=== PATIENT | male | born 1965 | race Caucasian/White ===

== ENCOUNTER 2025-05-04 12:51 | Inpatient (IN) ==
--- NOTE | 2025-05-04 13:44 | Emergency Department Note ---
History of Present Illness General Chief complaint: Shortness of Breath/Dyspnea Stated complaint: SOB Time Seen by Provider: 05/04/25 13:23 History of Present Illness This is a 60-year-old male that presents to the emergency department via EMS with complaints of "dyspnea". The patient notes history of PE x 3, currently anticoagulated on warfarin. Patient also notes recent diagnosis of black lung. Patient has history of thoracic aortic ectasia, hypertension, PE, black lung, among others. The patient notes last chest CT was fall of last year. Patient also notes on oxycodone 10 mg 4 times daily for pain. Patient notes that the shortness of breath has been essentially present since June of this past year, worsened in this past January and acutely worsened this morning. He is now requiring oxygen. Per review of EMS patient was 88% on room air when they arrived, placed on 6 L nasal cannula. They tried DuoNeb but not tolerable for the patient. EMS report patient also potentially in A-fib with PVC/PAC on the monitor. Patient now on 2 L nasal cannula. Patient denies any fevers, chills, nausea or vomiting. No chest pain. He does feel short of breath. No speech trouble or weakness. No recent or current illness. No fevers. The patient's spouse at bedside does have extensive records of the patient which were very helpful. The patient has [facility] in [place]. Patient also presents with [facility] visit summary dated 03/22/2025. At that time visit was for follow-up on palpitations. Home Medications Medication Instructions Recorded Confirmed Type acetaminophen 500 mg tablet 1,000 mg PO DAILY PRN Pain 05/04/25 05/04/25 History allopurinol 100 mg tablet 100 mg PO BID 05/04/25 05/04/25 History baclofen 10 mg tablet 10 mg PO TID 05/04/25 05/04/25 History carisoprodol 350 mg tablet 350 mg PO TID 05/04/25 05/04/25 History celecoxib 200 mg capsule 200 mg PO BID 05/04/25 05/04/25 History cholecalciferol (vitamin D3) 50 50 mcg PO DAILY 05/04/25 05/04/25 History mcg (2,000 unit) capsule (Vitamin D3) diclofenac sodium 1 % topical gel 2 g topical DAILY PRN Pain 05/04/25 05/04/25 History fexofenadine 180 mg tablet 180 mg PO DAILY 05/04/25 05/04/25 History furosemide 40 mg tablet 40 mg PO DAILY PRN Fluid Retention 05/04/25 05/04/25 History gabapentin 300 mg capsule 300 mg PO TID 05/04/25 05/04/25 History lisinopril 10 mg tablet 10 mg PO QAM 05/04/25 05/04/25 History metoprolol succinate 50 mg 50 mg PO QAM 05/04/25 05/04/25 History tablet,extended release 24 hr oxycodone 10 mg tablet 10 mg PO QID 05/04/25 05/04/25 History polyethylene glycol 3350 17 17 g PO DAILY PRN Constipation 05/04/25 05/04/25 History gram/dose oral powder (Miralax) warfarin 2.5 mg tablet 2.5 mg PO .FRIDAY AND Friday05/04/25 05/04/25 History warfarin 5 mg tablet 5 mg PO .FRANK,,FRI,S,SAT 05/04/25 05/04/25 History Allergies Allergy/AdvReac Type Severity Reaction Status Date / Time codeine AdvReac Unknown Unknown Verified 05/04/25 21:10 Past Med/Surg History Problem List (Updated 05/05/25 @ 00:24 by Alonzo Nam PA-C) Dyspnea (Acute) History of pulmonary embolism (Acute) Muscle spasm Tremors of nervous system BMI 50.0-59.9, adult Pneumoconiosis Hypoxia (Acute) Social History Smoking Status: Never smoker Hx Alcohol Use: No Hx Substance Use: No Preferred Language: [place] Current Living Situation: Spouse Feels Safe at Home: Yes Review of Systems A total of 10 systems reviewed and were otherwise negative Physical Exam Vital Signs Vital Signs - 24 hr 05/04/25 13:07 05/04/25 13:07 05/04/25 13:07 Temperature 37.2 C Temperature Source Oral Pulse Rate 85 Pulse Rate [Apical] 85 Respiratory Rate 17 17 Respiratory Depth Blood Pressure 144/108 H Blood Pressure [Right Radial Artery] 144/108 H Blood Pressure Mean 120 Blood Pressure Mean [Right Radial Artery] 120 Pulse Oximetry 95 95 95 Oxygen Delivery Method Room Air Room Air Room Air Oxygen Flow Rate Sepsis Recent Fever Within 48 Hours No Sepsis New/Unexplained Change in Mental Status N/A Sepsis Action Taken by Nursing No Action Required 05/04/25 13:13 05/04/25 13:53 05/04/25 15:25 Temperature Temperature Source Pulse Rate 84 83 Pulse Rate [Apical] 85 Respiratory Rate 18 Respiratory Depth Normal Blood Pressure Blood Pressure [Right Radial Artery] 106/57 L Blood Pressure Mean Blood Pressure Mean [Right Radial Artery] 73 Pulse Oximetry 94 100 Oxygen Delivery Method Nebulizer Oxygen Flow Rate 7 Sepsis Recent Fever Within 48 Hours Sepsis New/Unexplained Change in Mental Status Sepsis Action Taken by Nursing 05/04/25 17:00 05/04/25 17:15 05/04/25 17:41 Temperature Temperature Source Pulse Rate 87 Pulse Rate [Apical] 72 Respiratory Rate 16 Respiratory Depth Blood Pressure Blood Pressure [Right Radial Artery] 94/77 L 133/82 Blood Pressure Mean Blood Pressure Mean [Right Radial Artery] 82 99 Pulse Oximetry 95 Oxygen Delivery Method Nasal Cannula Oxygen Flow Rate 6 Sepsis Recent Fever Within 48 Hours Sepsis New/Unexplained Change in Mental Status Sepsis Action Taken by Nursing VITAL SIGNS - Vital signs and nursing notes were reviewed. Requiring oxygen, otherwise stable and afebrile. GENERAL -60-year-old male appearing his stated age who is in no acute distress. Currently on nasal cannula oxygen. Communicates well with provider and answers questions appropriately. SKIN - Without rashes. No meningeal or petechial rash. HEAD - NC/AT. EYES - PERRL with EOMI bilaterally. Sclera anicteric. EARS - No deformities of external structures noted on gross examination bilaterally. NOSE - Midline and without cyanosis. No epistaxis or purulent drainage noted. MOUTH/OROPHARYNX - Without perioral cyanosis. Buccal mucosa pink and moist and without leukoplakia. Tongue midline with equal elevation of palate bilaterally. No tonsillar hypertrophy, erythema, or exudates noted. Fair dentition noted. No drooling, stridor, trismus, wheezing or tripoding. Normal phonation. Patient speaking in full sentences NECK - Neck with FROM. No nuchal rigidity. LUNGS - Chest wall symmetric without accessory muscle use, intercostals retractions, or central cyanosis. Mild bilateral wheezing noted. CARDIAC - RRR ABDOMEN - Abdominal contour normal without pulsations or visible masses. BS normoactive all four quadrants. No tenderness, palpable masses, hepatosplenomegaly, or ascites noted. EXTREMITIES - +5/5 strength noted in UE/LE bilaterally. NEUROLOGIC - Cranial nerves II through XII grossly intact. PSYCH -alert, oriented and pleasant on examination. Course Administered Medications Allopurinol (Allopurinol 100 Mg Tab) 100 mg PO BID [facility] Stop: 06/03/25 20:59 Last Admin: 05/04/25 21:53 Dose: 100 mg Documented By: TONY Azelastine HCl (Azelastine Hcl 0.1% Nasal 200 Sprays/27,400 Mcg Btl) 2 sprays NA BID [facility] Stop: 06/03/25 21:29 Last Admin: 05/04/25 21:53 Dose: 2 sprays Documented By: TONY Baclofen (Baclofen 10 Mg Tab) 10 mg PO TID [facility] Stop: 06/03/25 20:59 Last Admin: 05/04/25 21:53 Dose: 10 mg Documented By: TONY Gabapentin (Gabapentin 250 Mg/5 Ml 470 Ml Btl) 150 mg PO TID [facility] Stop: 06/03/25 20:59 Last Admin: 05/04/25 21:52 Dose: 150 mg Documented By: TONY Oxycodone HCl (Oxycodone Hcl Ir 5 Mg Tab (Immediate Release)) 10 mg PO TID [facility] Stop: 05/18/25 20:59 Last Admin: 05/04/25 21:52 Dose: 10 mg Documented By: TONY Discontinued Medications Albuterol (Albut/Ipratrop 3mg/0.5mg Neb 3 Ml Vial) 3 ml NEB NOW STA; Protocol Stop: 05/04/25 15:20 Last Admin: 05/04/25 15:23 Dose: 3 ml Documented By: STUART Sodium Chloride (Nss) 500 mls @ 125 mls/hr IV .Q4H ONE Stop: 05/04/25 19:29 Last Infusion: 05/04/25 21:59 Dose: Infused Documented By: Admin: 05/04/25 17:56 Dose: 125 mls/hr Documented By: STUART Oxycodone HCl (Oxycodone Hcl Ir 5 Mg Tab (Immediate Release)) 10 mg PO NOW STA Stop: 05/04/25 18:12 Last Admin: 05/04/25 18:42 Dose: 10 mg Documented By: STUART Warfarin Sodium (Warfarin Sod 5 Mg Tab) 5 mg PO NOW ONE Stop: 05/04/25 17:52 Last Admin: 05/04/25 18:42 Dose: 5 mg Documented By: STUART Medical Decision Making Laboratory Data 05/04/25 13:09 05/04/25 13:09 Lab Results 05/04/25 05/04/25 Range/Units 13:09 14:35 WBC 6.06 (4.8-10.8) K/ul RBC 3.81 L (4.70-6.10) M/uL Hgb 11.5 L (14.0-18.0) g/dl Hct 35.7 L (42.0-52.0) % MCV 93.7 (80.0-100.0) fL MCH 30.2 (25.0-34.0) pg MCHC 32.2 (32.0-36.0) g/dL RDW Std Deviation 50.5 H (36.4-46.3) fL RDW Coeff of Philip 14.8 H (11.5-14.5) % Plt Count 191 (130-400) K/uL MPV 10.9 (9.4-12.4) fL Immature Gran % (Auto) 0.3 % Neut % (Auto) 59.7 % Lymph % (Auto) 22.6 % [place] % (Auto) 11.6 % Eos % (Auto) 5.0 % Baso % (Auto) 0.8 % Neut # (Auto) 3.62 (1.40-6.50) K/uL Lymph # (Auto) 1.37 (1.20-3.40) K/uL [place] # (Auto) 0.70 H (0.11-0.59) K/uL Eos # (Auto) 0.30 (0.00-0.50) K/uL Baso # (Auto) 0.05 (0.00-0.20) K/uL Immature Gran # (Auto) 0.02 (0.01-0.20) K/uL PT 28.3 H (9.0-12.0) Seconds INR 2.9 H (0.9-1.1) APTT 46 H (21-31) Seconds PTT Ratio 1.7 VBG pH 7.25 L (7.36-7.41) VBG pCO2 65 H (38-50) mmHg VBG pO2 31 mmHg VBG HCO3 29 mmol/L VBG O2 Saturation < 60.0 % VBG Base Excess 0 mEq/L Sodium 135 L (136-145) mmol/L Potassium 4.9 (3.5-5.1) mmol/L Chloride 99 (98-107) mmol/L Carbon Dioxide 28 (21-32) mmol/L Anion Gap 8 (3-11) BUN 54 H (6-23) mg/dl Creatinine 3.39 H (0.6-1.4) mg/dl Est Cr Clr Drug Dosing 39.8 ml/min eGFR 19.79 BUN/Creatinine Ratio 15.9 (10-20) Glucose 92 (70-99(Fasting)) mg/dl Calcium 9.0 (8.6-10.3) mg/dl Magnesium 2.1 (1.7-2.4) mg/dl Total Bilirubin 0.3 (0.2-1.0) mg/dl AST 14 (13-39) U/L ALT 11 (7-52) U/L Alkaline Phosphatase 73 (34-104) U/L Troponin I High Sens 8.3 (0-20) pg/ml B-Natriuretic Peptide 32 (0-100) pg/ml Total Protein 7.2 (6.0-8.3) gm/dl Albumin 3.6 (3.4-5.0) gm/dl Globulin 3.6 (2.5-4.0) gm/dl Albumin/Globulin Ratio 1.0 (0.9-2) Procalcitonin 0.05 (0-0.5) ng/ml TSH 2.672 (0.300-4.500) uIu/ml Imaging Data Radiologist's Impression: Head CT 05/04/25 13:39 CT head/brain wo con CLINICAL HISTORY: dyspnea, new 02 requirement, tremor. TECHNIQUE: Multiple axial CT images of the head were obtained without contrast. A dose lowering technique was utilized adhering to the principles of ALARA. CT DOSE: 3406.07mGy*cm COMPARISON: None FINDINGS: There is no intra-axial or extra-axial fluid collection, hemorrhage, or mass. There is bifrontal, symmetrical atrophy which is nonspecific. The ventricles are age-appropriate. There is no midline shift. The bone windows are unremarkable. IMPRESSION: No acute intracranial process. Nonspecific bifrontal atrophy. ACT 112: Negative or not required by law. The above report was generated using voice recognition software. It may contain grammatical, syntax or spelling errors. Electronically signed by: Liane Tarango M.D. 05/04/2025 3:00 PM Abdomen/Pelvis CT 05/04/25 14:18 CT SCAN OF THE ABDOMEN AND PELVIS WITHOUT IV CONTRAST CLINICAL HISTORY: Dyspnea. Tremor COMPARISON STUDY: No priors TECHNIQUE: CT scan of the abdomen and pelvis is performed from the lung bases to the proximal femora. Images are reviewed in the axial, sagittal, and coronal planes. IV contrast was not administered for this examination. Note that the examination was performed in suboptimal fashion without IV contrast. The examination is degraded by large body habitus, and by streak artifact from the body wall abutting the CT gantry. There is also motion artifact. A dose lowering technique was utilized adhering to the principles of ALARA. FINDINGS: Lung bases: The heart is top normal in size and without pericardial effusion. The coronary arteries are densely calcified. There is chronic appearing elevation of the right hemidiaphragm with right basilar atelectasis. No airspace consolidation or pleural effusion is identified. Liver: The unenhanced liver is normal in size, contour, and attenuation. There is no intrahepatic biliary ductal dilatation. Gallbladder: Unremarkable. Spleen: Normal in size and attenuation. Pancreas: The unenhanced pancreas is mildly atrophic and grossly unremarkable. Adrenal glands: Unremarkable. Kidneys: The unenhanced kidneys demonstrate cortical atrophy and are without hydronephrosis. There are no renal calculi identified. A 5.8 cm cyst is seen on the left. Abdominal vasculature: The abdominal aorta is normal in course and caliber noting mild atherosclerotic calcification. Bowel: There is no bowel obstruction. Mild fecal retention is seen throughout the colon. The appendix is normal as imaged. Peritoneum: There is no intraperitoneal free air or abdominal ascites. There is a fat-containing umbilical hernia. Lymphadenopathy: None. Pelvic viscera: The prostate gland is diminutive and heterogeneous. The bladder is distended but otherwise normal as imaged Skeletal structures: The skeletal structures are osteopenic. There is advanced lumbosacral spondylosis. Posterior disc osteophyte complexes contribute to multilevel spinal stenosis. Postsurgical change is seen in the lower thoracic spine. No lytic or blastic lesions are seen. Severe arthritic change and chronic deformity is noted in the right hip. Degenerative sclerosis is noted in the sacroiliac joints. IMPRESSION: 1. Suboptimal examination without IV contrast. There is also streak and motion artifact. 2. No acute infectious or inflammatory findings are identified in the abdomen or pelvis. 3. Additional findings as above. ACT 112: Negative or not required by law. Electronically signed by: Yonis Pastor M.D. 05/04/2025 3:[address] 05/04/25 14:18 CT chest diagnostic wo con CT DOSE: 3406.07 mGy.cm CLINICAL HISTORY: dyspnea, new 02 requirement, tremor. TECHNIQUE: Multiaxial CT images of the chest were performed without contrast. A dose lowering technique was utilized adhering to the principles of ALARA. COMPARISON STUDY: None FINDINGS: There is mild elevation of the right hemidiaphragm. There is mild atelectasis or scarring at the right lung base. There is minimal atelectasis or scarring posterior right upper lobe. No other pulmonary consolidation or pleural effusion. No pneumothorax. No evidence of interstitial lung disease. No significant pulmonary nodule. No enlarged adenopathy. No pericardial effusion. There are moderate coronary artery calcifications. There are mild thoracic spine degenerative changes. No acute osseous findings. IMPRESSION: 1. Mild atelectasis or scarring at the right lung. No pneumonia or pleural effusion seen. 2. Otherwise as described. ACT 112: Negative or not required by law. Electronically signed by: Franco Velez M.D. 05/04/2025 3:06 PM [facility] Narrative Patient was seen and evaluated as above in room A10. Review was performed of triage nursing notes and vital signs. No previous visits for review in the EMR at time of evaluation. After obtaining a thorough history and physical examination the above work up was performed. Patient presents to us today via EMS for evaluation of dyspnea. Please see HPI for full details. The patient is speaking in full sentences. He is on nasal cannula oxygen at this time. Options of care were discussed with the patient. IV access was established. Labs are drawn. EKG per my interpretation reveals normal sinus rhythm at a rate of 84 bpm. QTc 401. QRS 64. No ST elevation on this rhythm tracing. Labs reveal no leukocytosis. Minor anemia noted with hemoglobin at 11.5. INR 2.9. Patient's creat significant elevated here today at 3.39, BUN of 54. VBG pH 7.25 with a PCO2 of 65. INR 2.9. Troponin, BNP and procalcitonin within normal range. TSH reveals euthyroid state. CT scans at this time I do believe they are indicated. We will perform the without contrast noting the suspected NACHO today. CT scans of the head, chest and abdomen/pelvis were performed. Results as above. These were essentially without acute process. Blood cultures are pending. Urinalysis without sign of infection. Patient was given a DuoNeb breathing treatment here. The patient did note that he did not drink much fluid over the past few days and has been sweating. I ordered 500 mL of normal saline at 125 mL/h as the patient appears clinically dry but do not want to volume overload the patient and therefore will avoid bolus. I do believe that further evaluation and management in the inpatient setting is warranted. Case discussed with the hospitalist service. Please refer to further documentation regarding his stay. Antibiotics were not ordered as the patient does not have any fever and does not endorse other infectious symptoms. Blood cultures pending at this time. I did note a blood pressure reading of 94/77 later in the patient's stay. This did not seem accurate. I immediately presented to bedside when this was noticed. Patient noted that he blood pressure cuff slipped down when the check BP occurred. This was repositioned by RN. Recheck 133/82. Patient does ask for his do dose of 10 mg oral oxycodone. He takes this 4 times daily. Patient blood pressure now appropriate 133/82. This was ordered. GCS: 15 In the evaluation and treatment of this patient the following differential diagnoses were entertained: PE, pneumonia, pneumothorax, electrolyte disturbance, NACHO, dehydration, among others. Impression & Plan Hypoxia, History of pulmonary embolism, Dyspnea Discharge Plan Visit Data Chief Complaint: Shortness of Breath/Dyspnea Stated Complaint: SOB ED Provider: Janak Rabago ED Midlevel Provider: Alonzo Nam Discharge Problem: Hypoxia, History of pulmonary embolism, Dyspnea Patient Disposition: Admitted As Inpatient Condition: Fair Discharge Instructions Interventions: ED Discharge Assessment Last Done: 05/04/25 20:28
[2025-05-04 13:56] LABS: Hematocrit (blood only) 35.7 % (42.0-52.0); Hemoglobin 11.5 g/dl (14.0-18.0); Immature Granulocytes # (auto) 0.02 K/uL (0.01-0.20); Immature Granulocytes % (auto) 0.3 %; Mean Corpuscular Hemoglobin 30.2 pg (25.0-34.0); Mean Corpuscular Volume 93.7 fL (80.0-100.0); Platelet Count 191 K/uL (130-400); RDW Standard Deviation 50.5 fL (36.4-46.3); Red Blood Count 3.81 M/uL (4.70-6.10); White Blood Count 6.06 K/ul (4.8-10.8)
[2025-05-04 14:13] LABS: Alanine Aminotransferase 11.0 U/L (7-52); Albumin Globulin Ratio 1.0 (0.9-2); Alkaline Phosphatase 73.0 U/L (34-104); Anion Gap 8.0 (3-11); Bilirubin,Total 0.3 mg/dl (0.2-1.0); Blood Urea Nitrogen 54.0 mg/dl (6-23); Calcium 9.0 mg/dl (8.6-10.3); Carbon Dioxide 28.0 mmol/L (21-32); Chloride 99.0 mmol/L (98-107); Creatinine Clr Calc Pharmacy 39.8 ml/min; Globulin 3.6 gm/dl (2.5-4.0); Glucose 92.0 mg/dl (70-99(Fasting)); Magnesium 2.1 mg/dl (1.7-2.4); Potassium 4.9 mmol/L (3.5-5.1); Sodium 135.0 mmol/L (136-145); Total Protein 7.2 gm/dl (6.0-8.3)
[2025-05-04 14:28] LABS: Thyroid Stimulating Hormone 2.672 uIu/ml (0.300-4.500)
[2025-05-04 14:31] LABS: INR 2.9 (0.9-1.1); Partial Thromboplastin Time 46 Seconds (21-31); Prothrombin Time 28.3 Seconds (9.0-12.0)
[2025-05-04 14:43] LABS: Base Excess VBG 0 mEq/L; HCO3 VBG 29 mmol/L; Oxygen Saturation VBG < 60.0 %; PCO2 VBG 65 mmHg (38-50); PO2 VBG 31 mmHg; pH VBG 7.25 (7.36-7.41)
--- NOTE | 2025-05-04 15:02 | CT Scan Report ---
CT head/brain wo con CLINICAL HISTORY: dyspnea, new 02 requirement, tremor. TECHNIQUE: Multiple axial CT images of the head were obtained without contrast. A dose lowering tech nique was utilized adhering to the principles of ALARA. CT DOSE: 3406.07mGy*cm COMPARISON: None FINDINGS: There is no intra-axial or extra-axial fluid collection, hemorrhage, or mass. There is bifr ontal, symmetrical atrophy which is nonspecific. The ventricles are age-appropriate. There is no midl ine shift. The bone windows are unremarkable. IMPRESSION: No acute intracranial process. Nonspecific bifrontal atrophy. ACT 112: Negative or not required by law. The above report was generated using voice recognition software. It may contain grammatical, syntax o r spelling errors. Electronically signed by: Liane Tarango M.D. 05/04/2025 3:00 PM
--- NOTE | 2025-05-04 15:05 | CT Scan Report ---
CT SCAN OF THE ABDOMEN AND PELVIS WITHOUT IV CONTRAST CLINICAL HISTORY: Dyspnea. Tremor COMPARISON STUDY: No priors TECHNIQUE: CT scan of the abdomen and pelvis is performed from the lung bases to the proximal femora. Images are reviewed in the axial, sagittal, and coronal planes. IV contrast was not administered for this examination. Note that the examination was performed in suboptimal fashion without IV contrast. The examination is degraded by large body habitus, and by streak artifact from the body wall abuttin g the CT gantry. There is also motion artifact. A dose lowering technique was utilized adhering to th e principles of ALARA. FINDINGS: Lung bases: The heart is top normal in size and without pericardial effusion. The coronary arteries a re densely calcified. There is chronic appearing elevation of the right hemidiaphragm with right basi lar atelectasis. No airspace consolidation or pleural effusion is identified. Liver: The unenhanced liver is normal in size, contour, and attenuation. There is no intrahepatic good iary ductal dilatation. Gallbladder: Unremarkable. Spleen: Normal in size and attenuation. Pancreas: The unenhanced pancreas is mildly atrophic and grossly unremarkable. Adrenal glands: Unremarkable. Kidneys: The unenhanced kidneys demonstrate cortical atrophy and are without hydronephrosis. There ar e no renal calculi identified. A 5.8 cm cyst is seen on the left. Abdominal vasculature: The abdominal aorta is normal in course and caliber noting mild atheroscleroti c calcification. Bowel: There is no bowel obstruction. Mild fecal retention is seen throughout the colon. The appendix is normal as imaged. Peritoneum: There is no intraperitoneal free air or abdominal ascites. There is a fat-containing umbi lical hernia. Lymphadenopathy: None. Pelvic viscera: The prostate gland is diminutive and heterogeneous. The bladder is distended but othe rwise normal as imaged Skeletal structures: The skeletal structures are osteopenic. There is advanced lumbosacral spondylosi s. Posterior disc osteophyte complexes contribute to multilevel spinal stenosis. Postsurgical change is seen in the lower thoracic spine. No lytic or blastic lesions are seen. Severe arthritic change an d chronic deformity is noted in the right hip. Degenerative sclerosis is noted in the sacroiliac join ts. IMPRESSION: 1. Suboptimal examination without IV contrast. There is also streak and motion artifact. 2. No acute infectious or inflammatory findings are identified in the abdomen or pelvis. 3. Additional findings as above. ACT 112: Negative or not required by law. Electronically signed by: Yonis Pastor M.D. 05/04/2025 3:03 PM
--- NOTE | 2025-05-04 15:07 | CT Scan Report ---
CT chest diagnostic wo con CT DOSE: 3406.07 mGy.cm CLINICAL HISTORY: dyspnea, new 02 requirement, tremor. TECHNIQUE: Multiaxial CT images of the chest were performed without contrast. A dose lowering techni que was utilized adhering to the principles of ALARA. COMPARISON STUDY: None FINDINGS: There is mild elevation of the right hemidiaphragm. There is mild atelectasis or scarring a t the right lung base. There is minimal atelectasis or scarring posterior right upper lobe. No other pulmonary consolidation or pleural effusion. No pneumothorax. No evidence of interstitial lung diseas e. No significant pulmonary nodule. No enlarged adenopathy. No pericardial effusion. There are modera te coronary artery calcifications. There are mild thoracic spine degenerative changes. No acute osseo us findings. IMPRESSION: 1. Mild atelectasis or scarring at the right lung. No pneumonia or pleural effusion seen. 2. Otherwise as described. ACT 112: Negative or not required by law. Electronically signed by: Franco Velez M.D. 05/04/2025 3:06 PM
[2025-05-04] MEDS: ALBUT/IPRATROP 3MG/0.5MG NEB 3 ML VIAL NEB STA (15:23)
--- NOTE | 2025-05-04 16:02 | History & Physical Report ---
Date of Service May 04, 2025 Assessment & Plan (1) Hypoxia: (2) Pneumoconiosis: (3) BMI 50.0-59.9, adult: (4) Tremors of nervous system: (5) Muscle spasm: (6) History of pulmonary embolism: Plan This patient is a 60-year-old male who presented on 05/04 for SOB/hypoxia. #Hypoxia No distress; afebrile Imaging negative for pneumonia Unable to obtain chest CTA due to kidney function; however patient's INR is elevated 2.9 on arrival, and he reports most INRs have been ~2.5 He reports no missed doses of Eliquis Suspect that patient's hypoxia is secondary to pneumoconiosis + obesity hypoventilation (see below) COVID, flu, RSV ordered, pending Not on supplemental oxygen at baseline IS, flutter valve DuoNeb PRN Recommend 2-step closer to discharge Titrate supplemental oxygen as needed to maintain SpO2 >92% Continuous pulse oximetry #[employer] workers pneumoconiosis Recent diagnosis of black lung in February 2025; started following with [place] clinic Has been told by multiple providers that he will probably need oxygen at [facility]; however he has been reluctant to this idea until recently #BMI >50 Noted; ? obesity hypoventilation BiPAP overnight Patient would benefit from Trelegy Ellipta Recommend overnight pulse ox study + AM ABG closer to discharge Pulmonology consult appreciated #Tremors | spasms Hold carisoprodol TID as this can contribute to respiratory depression Continue baclofen TID for now Recommend eval for primidone as an outpatient #History of PE x 3 INR 2.9 on arrival Trend PT/INR #Suspected NACHO Creatinine 3.39 on arrival (no prior records, but patient reports his baseline is around "low 2.0s") Records from patient's PCPs office ([facility]) have been requested Avoid nephrotoxic agents for possible Dose reduce gabapentin to 150 mg p.o. TID Hold lisinopril, lasix, celecoxib ? Due to using too much PRN lasix over the past week #HTN Continue metoprolol #Chronic pain syndrome Patient reports he takes oxycodone 10 mg tablets 3-4 times per day (verified in PDMP) Oxycodone 10 mg tablets TID scheduled Acetaminophen 1000 mg q8h PRN Monitor for respiratory depression Continue bowel regimen Disposition: Admit to [facility]TE PPx: Warfarin History of Present Illness Chief Complaint: SOB/Dyspnea Primary Care Provider: Andrey Che DO Mr. Singh is a 60yo male with PMHx of pulmonary embolism x 3 (on warfarin), black lung, HTN, and gout. He presented on 05/04 for SOB. Patient normally follows with Sally / Natalie. 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 His shortness of breath has been ongoing since last fall, however he reports an acute worsening today. Both SOB at rest and with exertion. Today, the breathing was acutely worse due to his tremors; he reports several episodes where he could not catch his breath, and he felt like a "fish out of water". He also had difficulty holding objects, and dropped his coffee as well as his TV remote. Patient has been told in the past that he needs up on oxygen, however he has been reluctant to start it. However, he did see a stock worker this past February, who did a test on his "arterial blood gas at rest", and he was again told he needed someone oxygen. However this stock worker could not prescribe his supplemental oxygen. His recent PCP (Dr. Jb Mayfield at [facility]) retired, and he has been trying to get in with his new PCP (Dr. Fox), but a recent appointment was canceled due to a family emergency. He has been unable to get in for the past 2 to 3 weeks, and feels frustrated by this. Per EMS, patient had a new oxygen requirement as his SpO2 was 88% on room air on arrival. Patient did not tolerate DuoNeb. Patient reports he took his regular morning medicine today. No recent change in medications. He reports good compliance with taking his warfarin, and reports no missed doses daily. He takes warfarin for history of PE x 3, with last episode being in March 2024. He also reports that his INR has been around 2.5 during his last several rechecks. No sick contacts. Records have been requested from his prior PCP. Reports his baseline creatinine is around 2.0, and he does not currently have issues with his kidneys. Patient has been taking Lasix every day over the past week, when normally he does not take it every day. Decreased urinary frequency last night. Patient takes oxycodone 10 mg tablets 3-4 times per day as needed for chronic pain. He takes baclofen 3 times per day for his muscle spasms. Patient reports he is not been tried on propranolol for tremors, or primidone for restless leg syndrome. Patient denies smoking, tobacco use, recent alcohol use. Patient he is hypotensive at 106/57, and SpO2 is 95% on room air on arrival. 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 Patient denies fever, chills, orthopnea, chest pain, chest palpitations, hemoptysis, pleuritic CP, N/V/D, changes in urinary/bowel habits, fecal/urinary incontinence, saddle anesthesia, or numbness/tingling in the arms or legs. Allergies Allergy/AdvReac Type Severity Reaction Status Date / Time codeine AdvReac Unknown Unknown Verified 05/04/25 21:10 Home Medications Medication Instructions Recorded Confirmed Type acetaminophen 500 mg tablet 1,000 mg PO DAILY PRN Pain 05/04/25 05/04/25 History allopurinol 100 mg tablet 100 mg PO BID 05/04/25 05/04/25 History baclofen 10 mg tablet 10 mg PO TID 05/04/25 05/04/25 History carisoprodol 350 mg tablet 350 mg PO TID 05/04/25 05/04/25 History celecoxib 200 mg capsule 200 mg PO BID 05/04/25 05/04/25 History cholecalciferol (vitamin D3) 50 50 mcg PO DAILY 05/04/25 05/04/25 History mcg (2,000 unit) capsule (Vitamin D3) diclofenac sodium 1 % topical gel 2 g topical DAILY PRN Pain 05/04/25 05/04/25 History fexofenadine 180 mg tablet 180 mg PO DAILY 05/04/25 05/04/25 History furosemide 40 mg tablet 40 mg PO DAILY PRN Fluid Retention 05/04/25 05/04/25 History gabapentin 300 mg capsule 300 mg PO TID 05/04/25 05/04/25 History lisinopril 10 mg tablet 10 mg PO QAM 05/04/25 05/04/25 History metoprolol succinate 50 mg 50 mg PO QAM 05/04/25 05/04/25 History tablet,extended release 24 hr oxycodone 10 mg tablet 10 mg PO QID 05/04/25 05/04/25 History polyethylene glycol 3350 17 17 g PO DAILY PRN Constipation 05/04/25 05/04/25 History gram/dose oral powder (Miralax) warfarin 2.5 mg tablet 2.5 mg PO .FRIDAY AND Friday05/04/25 05/04/25 History warfarin 5 mg tablet 5 mg PO .,,FRI,,SAT 05/04/25 05/04/25 History Past Med/Surg History Problem List (Updated 05/05/25 @ 00:24 by Alonzo Nam PA-C) Dyspnea (Acute) History of pulmonary embolism (Acute) Muscle spasm Tremors of nervous system BMI 50.0-59.9, adult Pneumoconiosis Hypoxia (Acute) Social History Smoking Status: Never smoker Hx Alcohol Use: No Hx Substance Use: No Preferred Language: Chinese Current Living Situation: Spouse Feels Safe at Home: Yes Review of Systems Review of Systems: See HPI above Physical Exam Physical Exam: General: Moderate distress secondary to breathing difficulty and chronic pain; tearful in the room; at bedside; non-toxic appearing; cooperative; SpO2 95% on 6L NC HEENT: normocephalic, atraumatic; no scleral icterus; PERRLA; vision and hearing grossly intact Neck: supple; trachea midline Skin: warm, dry without signs of tenting; no cyanosis; no rashes, bruising, lesions, or erythema noted CV: chest wall NTP; RRR; S1/S2 normal; no murmurs/rubs/gallops; pulses intact and symmetric at radial, DP, and PT Lungs: no acute respiratory distress; symmetrical chest wall expansion; clear breath sounds across all lung kasper w/o adventitious sounds; no wheezing ABD: Soft, NTP; BS present; no rebound/guarding; no distention; suboptimal exam secondary to body habitus MSK: Intermittent tremors, fasciculations mainly in the upper extremities bilaterally; nonpitting edema in the lower extremities bilaterally Neuro: A&Ox3; normal mood and affect; fluent speech; sensation intact symmetric in the lower extremities bilaterally Results & Data Results & Data Vital Signs (Past 12 Hours) Vital Signs Temp Pulse Pulse Resp BP BP Pulse Ox 05/04/25 15:25 85 18 106/57 L 100 05/04/25 13:53 83 94 05/04/25 13:13 84 05/04/25 13:07 85 17 144/108 H 95 05/04/25 13:07 95 05/04/25 13:07 37.2 C 85 17 144/108 H 95 O2 Del Method O2 Flow Rate 05/04/25 15: Nebulizer 7 05/04/25 13:53 05/04/25 13:13 05/04/25 13:07 Room Air 05/04/25 13:07 Room Air 05/04/25 13:07 Room Air Laboratory Results Abnormal lab results 05/04/25 05/04/25 Range/Units 13:09 14:35 RBC 3.81 L (4.70-6.10) M/uL Hgb 11.5 L (14.0-18.0) g/dl Hct 35.7 L (42.0-52.0) % RDW Std Deviation 50.5 H (36.4-46.3) fL RDW Coeff of Philip 14.8 H (11.5-14.5) % Jack # (Auto) 0.70 H (0.11-0.59) K/uL PT 28.3 H (9.0-12.0) Seconds INR 2.9 H (0.9-1.1) APTT 46 H (21-31) Seconds VBG pH 7.25 L (7.36-7.41) VBG pCO2 65 H (38-50) mmHg Sodium 135 L (136-145) mmol/L BUN 54 H (6-23) mg/dl Creatinine 3.39 H (0.6-1.4) mg/dl Diagnostic Findings Head CT 05/04/25 13:39 CT head/brain wo con CLINICAL HISTORY: dyspnea, new 02 requirement, tremor. TECHNIQUE: Multiple axial CT images of the head were obtained without contrast. A dose lowering technique was utilized adhering to the principles of ALARA. CT DOSE: 3406.07mGy*cm COMPARISON: None FINDINGS: There is no intra-axial or extra-axial fluid collection, hemorrhage, or mass. There is bifrontal, symmetrical atrophy which is nonspecific. The ventricles are age-appropriate. There is no midline shift. The bone windows are unremarkable. IMPRESSION: No acute intracranial process. Nonspecific bifrontal atrophy. ACT 112: Negative or not required by law. The above report was generated using voice recognition software. It may contain grammatical, syntax or spelling errors. Electronically signed by: Liane Tarango M.D. 05/04/2025 3:00 PM Abdomen/Pelvis CT 05/04/25 14:18 CT SCAN OF THE ABDOMEN AND PELVIS WITHOUT IV CONTRAST CLINICAL HISTORY: Dyspnea. Tremor COMPARISON STUDY: No priors TECHNIQUE: CT scan of the abdomen and pelvis is performed from the lung bases to the proximal femora. Images are reviewed in the axial, sagittal, and coronal planes. IV contrast was not administered for this examination. Note that the examination was performed in suboptimal fashion without IV contrast. The examination is degraded by large body habitus, and by streak artifact from the body wall abutting the CT gantry. There is also motion artifact. A dose lowering technique was utilized adhering to the principles of ALARA. FINDINGS: Lung bases: The heart is top normal in size and without pericardial effusion. The coronary arteries are densely calcified. There is chronic appearing elevation of the right hemidiaphragm with right basilar atelectasis. No airspace consolidation or pleural effusion is identified. Liver: The unenhanced liver is normal in size, contour, and attenuation. There is no intrahepatic biliary ductal dilatation. Gallbladder: Unremarkable. Spleen: Normal in size and attenuation. Pancreas: The unenhanced pancreas is mildly atrophic and grossly unremarkable. Adrenal glands: Unremarkable. Kidneys: The unenhanced kidneys demonstrate cortical atrophy and are without hydronephrosis. There are no renal calculi identified. A 5.8 cm cyst is seen on the left. Abdominal vasculature: The abdominal aorta is normal in course and caliber noting mild atherosclerotic calcification. Bowel: There is no bowel obstruction. Mild fecal retention is seen throughout the colon. The appendix is normal as imaged. Peritoneum: There is no intraperitoneal free air or abdominal ascites. There is a fat-containing umbilical hernia. Lymphadenopathy: None. Pelvic viscera: The prostate gland is diminutive and heterogeneous. The bladder is distended but otherwise normal as imaged Skeletal structures: The skeletal structures are osteopenic. There is advanced lumbosacral spondylosis. Posterior disc osteophyte complexes contribute to multilevel spinal stenosis. Postsurgical change is seen in the lower thoracic spine. No lytic or blastic lesions are seen. Severe arthritic change and chronic deformity is noted in the right hip. Degenerative sclerosis is noted in the sacroiliac joints. IMPRESSION: 1. Suboptimal examination without IV contrast. There is also streak and motion artifact. 2. No acute infectious or inflammatory findings are identified in the abdomen or pelvis. 3. Additional findings as above. ACT 112: Negative or not required by law. Electronically signed by: Yonis Pastor M.D. 05/04/2025 3:[address] 05/04/25 14:18 CT chest diagnostic wo con CT DOSE: 3406.07 mGy.cm CLINICAL HISTORY: dyspnea, new 02 requirement, tremor. TECHNIQUE: Multiaxial CT images of the chest were performed without contrast. A dose lowering technique was utilized adhering to the principles of ALARA. COMPARISON STUDY: None FINDINGS: There is mild elevation of the right hemidiaphragm. There is mild atelectasis or scarring at the right lung base. There is minimal atelectasis or scarring posterior right upper lobe. No other pulmonary consolidation or pleural effusion. No pneumothorax. No evidence of interstitial lung disease. No significant pulmonary nodule. No enlarged adenopathy. No pericardial effusion. There are moderate coronary artery calcifications. There are mild thoracic spine degenerative changes. No acute osseous findings. IMPRESSION: 1. Mild atelectasis or scarring at the right lung. No pneumonia or pleural effusion seen. 2. Otherwise as described. ACT 112: Negative or not required by law. Electronically signed by: Franco Velez M.D. 05/04/2025 3:06 PM ECG Additional Comments: ECG revealed NSR at 84 bpm; QTc 401 Code Status & VTE Plan Code Status DNR/DNI VTE Prophylaxis Plan VTE Prophylaxis will be ordered: Yes Supervising Physician Co-Signing Physician Notes Attending Attestation and Admit Note: Pt seen/examined, chart reviewed, admit care plan d/w EFRA Albarado. I agree w/ the gambino components of his admit documentation. 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 He presented with acute/chronic dyspnea. Recent diagnosis of black lung in February 2025 and now following with [facility] clinic in [place] via the [facility] system. He is not on home O2 or NIPPV (ie BIPAP) but did have a 2-step by his stock worker somewhat recently and the report his had at bedside showed he dropped to 88% in RA. He was not prescribed O2, however, as he was reluctant. When asked if he would be willing to trial BIPAP while here he stated he wasn't sure he could tolerate the mask due to his allergies. Patient reports h/o right diaphragm farheen elevation, tremors ( reports these were bad today), and recent edema. He has taken daily lasix 40mg for about 2 weeks straight; typically only takes prn. PMH/PSH/allergies/meds/sochx - reviewed VSS, afebrile during my visit he was satting 100% on 6 L NC O2; dropped the NC to 2 liters; sats were 95% on such gen - morbidly obese, NAD, lying completely flat in bed w/o orthopnea mouth - MM slightly dry neck - no JVD but difficult to assess due to neck size heart - tones are distant, s1s2, RRR, no murmur lungs - CTA b/l, no rales, no wheeze, no distress abd - soft NT ND BS+ ext - no edema, pulses b/l feet 2+ neuro - no asterixis labs reviewed extensive imaging reviewed 2-step result that had from prior outpatient visit reviewed EKG - NSR, no ST changes A/P: 1. acute/chronic dyspnea -chronic components - OHS, restrictive lung disease from morbid obesity, ?pulm HTN from prior PEs, black lung disease, right farheen-diaphragm elevation. -acute component(s) - uncertain - CT chest unremarkable today; no evidence clinically of CHF; no bronchospasm on exam; COVID/flu/RSV negative; patient blaming dyspnea today on tremors?? 2. chronic hypercapnic resp failure - needs NIPPV but uncertain patient will comply; did ask [facility] to consult for additional recs for #1, #2 3. NACHO - suspect volume contraction from recent lasix use daily x 2 weeks; HOLD diuretics; hydrate overnight; BMP am; no evidence of obstruction on CT a/p 4. tremors - essential tremor? due to hypercapnia? withdrawal from meds? elevated ammonia level? other? 5. h/o PE - INR therapeutic; cont coumadin per home regimen; INR am. /daughter updated at bedside today Fortunato Das MD PG Care Time/CCT Total # of Minutes Spent Total Time Spent with Patient: Total time spent is greater than 50% in coordination of care (as documented) at patient's floor/unit and/or counseling patient: [place] [address] INT INP/OBS CARE 3/75MIN Patient Type Established Medical Decision Making High Complexity Diagnoses Hypoxia R09.02 Pneumoconiosis J64 BMI 50.0-59.9, adult Z68.43 Tremors of nervous system R25.1 Muscle spasm M62.838 History of pulmonary embolism Z86.711
[2025-05-04 16:55] LABS: Appearance Urine Clear (Clear); Glucose Urine UA Negative (Negative)
[2025-05-04] MEDS: SODIUM CHLORIDE 0.9% 500 ML IV ONE (17:56)
[2025-05-04] MEDS: WARFARIN SOD 5 MG TAB PO ONE (18:42)
[2025-05-04 19:40] LABS: Influenza A virus by PCR Negative (Neg); Influenza B virus by PCR Negative (Neg); SARS CoV2 RNA(COVID-19) Ceph NEGATIVE (Negative)
[2025-05-04] MEDS ORDERED: DICLOFENAC SOD 1% GEL 100 GM TUBE EXT PRN (20:58)
[2025-05-04] MEDS ORDERED: ALBUT/IPRATROP 3MG/0.5MG NEB 3 ML VIAL NEB PRN (20:58)
[2025-05-04] MEDS ORDERED: POLYETHYLENE (MIRALAX) 17 GM PACK PO PRN (20:58)
[2025-05-04] MEDS ORDERED: ACETAMINOPHEN 500 MG TAB PO PRN (20:58)
[2025-05-04] MEDS ORDERED: MELATONIN 3 MG TAB PO PRN (20:58)
[2025-05-04 21:10] LABS: iSTAT Art Bld Gas Base Excess -1.0 meg/L (-9-1.8); iSTAT Art Bld Gas pCO2 Correct 49 mmHg (35-46); iSTAT Art Bld Gas pH Corrected 7.310 (7.35-7.45); iSTAT Arterial Blood Gas pO2 C 58
[2025-05-04] MEDS: GABAPENTIN 250 MG/5 ML 470 ML BTL PO SCH (21:52)
[2025-05-04] MEDS: AZELASTINE HCL 0.1% NASAL 200 SPRAYS/27,400 MCG BTL SCH (21:53)
[2025-05-04] MEDS: BACLOFEN 10 MG TAB PO SCH (21:53)
[2025-05-05] MEDS: FEXOFENADINE HCL 180 MG TAB PO SCH (08:10)
[2025-05-05] MEDS: METOPROLOL SUCC 50MG EXT REL TAB PO SCH (08:15)
[2025-05-05 09:28] LABS: Hematocrit (blood only) 35.2 % (42.0-52.0); Hemoglobin 11.2 g/dl (14.0-18.0); Mean Corpuscular Hemoglobin 29.6 pg (25.0-34.0); Mean Corpuscular Volume 93.1 fL (80.0-100.0); Platelet Count 175 K/uL (130-400); RDW Standard Deviation 49.9 fL (36.4-46.3); Red Blood Count 3.78 M/uL (4.70-6.10); White Blood Count 5.17 K/ul (4.8-10.8)
[2025-05-05 09:36] LABS: Anion Gap 9.0 (3-11); Calcium 9.1 mg/dl (8.6-10.3); Carbon Dioxide 24.0 mmol/L (21-32); Chloride 103.0 mmol/L (98-107); Potassium 5.4 mmol/L (3.5-5.1); Sodium 136.0 mmol/L (136-145)
[2025-05-05 09:42] LABS: Blood Urea Nitrogen 41.0 mg/dl (6-23); Creatinine Clr Calc Pharmacy 56.1 ml/min; Glucose 122.0 mg/dl (70-99(Fasting))
[2025-05-05 10:01] LABS: INR 3.1 (0.9-1.1); Prothrombin Time 30.1 Seconds (9.0-12.0)
--- NOTE | 2025-05-05 11:18 | Pulmonary Consultation ---
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 He is not hypoxemic currently. He is fully anticoagulated due to prior history of DVT/PEs. Blood gas demonstrated mild chronic respiratory acidosis. He does have some kidney dysfunction as well. Recommendations: 1. Dyspnea: This has been a chronic problem for the patient and likely is multifactorial due to combinations of restrictive lung disease, obesity, and potentially deconditioning. Do not have his PFTs available to review. Echocardiogram was ordered but his troponin and BNP are both normal. I think this can be an outpatient workup. The patient does not have an acute issue that needs to be evaluated in the hospital. Recommend he be ambulated in the hospital to assess for supplemental oxygen. He can then follow-up with [place] [facility] who apparently did his testing previously. 2. Hypercapnia: Acute on chronic. High suspicion for sleep disordered breathing and recommend outpatient polysomnography performed through [place] [facility]. 3. Weight loss recommended. Consider referral to bariatric medicine in the outpatient setting. 4. The patient reports a clinical diagnosis of coal workers pneumoconiosis however CT scan is relatively unremarkable. Advised him that we do not offer occupational lung disease evaluation or management at this point in time. Recommend he follow-up with his providers in [place]. This point in time the patient's acute respiratory needs appear to have resolved. He can be dismissed from the hospital from a pulmonary perspective. No indication for additional inpatient pulmonary evaluation. Recommend he follow-up with [place] [facility] in the outpatient setting. Thanks for the opportunity participating in the care of this patient. Pulmonary will sign off. Feel free to contact us with questions or concerns History of Present Illness Attending Physician: Fortunato Das MD History of Present Illness Asked by hospitalist to evaluate this patient with shortness of breath. History is obtained from discussion with the patient as well as review of the electronic medical record. Patient is a 60-year-old male with morbid obesity who has a longstanding history of shortness of breath. He presented to the emergency room yesterday due to feeling that he was drowning. 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 He is not had a prior sleep study evaluation performed. He reports having had extensive pulmonary evaluation performed including breathing tests and what sounds like blood gases but none of that data is available to review. The patient is morbidly obese. He is anticoagulated on Coumadin due to a prior history of PEs. He has not had chest pain or palpitations. No significant lower extremity edema. He reports that this morning he is back to normal and ambulating. He is not on oxygen. Allergies Allergy/AdvReac Type Severity Reaction Status Date / Time codeine AdvReac Unknown Unknown Verified 05/04/25 21:10 Home Medications Medication Instructions Recorded Confirmed Type acetaminophen 500 mg tablet 1,000 mg PO DAILY PRN Pain 05/04/25 05/04/25 History allopurinol 100 mg tablet 100 mg PO BID 05/04/25 05/04/25 History baclofen 10 mg tablet 10 mg PO TID 05/04/25 05/04/25 History carisoprodol 350 mg tablet 350 mg PO TID 05/04/25 05/04/25 History celecoxib 200 mg capsule 200 mg PO BID 05/04/25 05/04/25 History cholecalciferol (vitamin D3) 50 50 mcg PO DAILY 05/04/25 05/04/25 History mcg (2,000 unit) capsule (Vitamin D3) diclofenac sodium 1 % topical gel 2 g topical DAILY PRN Pain 05/04/25 05/04/25 History fexofenadine 180 mg tablet 180 mg PO DAILY 05/04/25 05/04/25 History furosemide 40 mg tablet 40 mg PO DAILY PRN Fluid Retention 05/04/25 05/04/25 History gabapentin 300 mg capsule 300 mg PO TID 05/04/25 05/04/25 History lisinopril 10 mg tablet 10 mg PO QAM 05/04/25 05/04/25 History metoprolol succinate 50 mg 50 mg PO QAM 05/04/25 05/04/25 History tablet,extended release 24 hr oxycodone 10 mg tablet 10 mg PO QID 05/04/25 05/04/25 History polyethylene glycol 3350 17 17 g PO DAILY PRN Constipation 05/04/25 05/04/25 History gram/dose oral powder (Miralax) warfarin 2.5 mg tablet 2.5 mg PO .FRIDAY AND Friday05/04/25 05/04/25 History warfarin 5 mg tablet 5 mg PO .FRANK,,FRI,THS,SAT 05/04/25 05/04/25 History Patient History Social History Smoking Status: Never smoker Hx Alcohol Use: No Hx Substance Use: No Preferred Language: Nepali Current Living Situation: Spouse Feels Safe at Home: Yes Review of Systems Review of Systems: Please refer to admission H&P. No additions or deletions Physical Exam Constitutional: WD/WN, vitals as above Neck: trachea midline, no thyromegaly Respiratory: normal respiratory effort, lungs clear to auscultation Cardiovascular: RRR, no murmur, no edema Gastrointestinal (Abdomen): normal bowel sounds, soft, nontender, no hepat osplenomegaly Musculoskeletal: Extremities: extremities normal to inspection Skin: no rashes, warm and dry Neurologic: Nonfocal exam Lymphatic: no cervical lymphadenopathy Results & Data Results & Data Vital Signs (Past 12 Hours) Vital Signs Temp Pulse Resp BP Pulse Ox O2 Del Method 05/05/25 08:30 Room Air 05/05/25 07:05 36.6 C 97 H 20 92/64 L 91 Room Air Critical Care Results & Data Vital Signs (Past 12 Hours) Vital Signs Temp Pulse Resp BP Pulse Ox O2 Del Method 05/05/25 08:30 Room Air 05/05/25 07:05 36.6 C 97 H 20 92/64 L 91 Room Air Lab & Micro Results (Past 24 Hours) RBC 3.78 M/uL (4.70-6.10) L 05/05/25 WBC 5.17 K/ul (4.8-10.8) 05/05/25 Hgb 11.2 g/dl (14.0-18.0) L 05/05/25 Hct 35.2 % (42.0-52.0) L 05/05/25 MCV 93.1 fL (80.0-100.0) 05/05/25 MCH 29.6 pg (25.0-34.0) 05/05/25 MCHC 31.8 g/dL (32.0-36.0) L 05/05/25 RDW Standard Deviation 49.9 fL (36.4-46.3) H 05/05/25 RDW Coefficient of Variation 14.6 % (11.5-14.5) H 05/05/25 Plt Count 175 K/uL (130-400) 05/05/25 MPV 10.6 fL (9.4-12.4) 05/05/25 Neutrophils (%) (Auto) 59.7 % 05/04/25 Lymphocytes (%) (Auto) 22.6 % 05/04/25 Monocytes # (Auto) 0.70 K/uL (0.11-0.59) H 05/04/25 Eosinophils # (Auto) 0.30 K/uL (0.00-0.50) 05/04/25 Immature Granulocyte % (Auto) 0.3 % 05/04/25 Neutrophils # (Auto) 3.62 K/uL (1.40-6.50) 05/04/25 Lymphocytes # (Auto) 1.37 K/uL (1.20-3.40) 05/04/25 Monocytes # (Auto) 0.70 K/uL (0.11-0.59) H 05/04/25 Eosinophils # (Auto) 0.30 K/uL (0.00-0.50) 05/04/25 Basophils # (Auto) 0.05 K/uL (0.00-0.20) 05/04/25 Immature Granulocyte # (Auto) 0.02 K/uL (0.01-0.20) 5 Na 136 mmol/L (136-145) 05/05/25 K 5.4 mmol/L (3.5-5.1) H 05/05/25 Cl 103 mmol/L (98-107) 05/05/25 CO2 24 mmol/L (21-32) 05/05/25 Anion Gap 9 (3-11) 05/05/25 BUN 41 mg/dl (6-23) H 05/05/25 Creatinine 2.11 mg/dl (0.6-1.4) H 05/05/25 BUN/Creatinine Ratio 19.4 (10-20) 05/05/25 Glu 122 mg/dl (70-99(Fasting)) H 05/05/25 Ca 9.1 mg/dl (8.6-10.3) 05/05/25 Total Bilirubin 0.3 mg/dl (0.2-1.0) 05/04/25 AST 14 U/L (13-39) 05/04/25 ALT 11 U/L (7-52) 05/04/25 Alkaline Phosphatase 73 U/L (34-104) 05/04/25 TP 7.2 gm/dl (6.0-8.3) 05/04/25 Albumin 3.6 gm/dl (3.4-5.0) 05/04/25 Globulin 3.6 gm/dl (2.5-4.0) 05/04/25 Albumin/Globulin Ratio 1.0 (0.9-2) 05/04/25 Mg 2.1 mg/dl (1.7-2.4) 05/04/25 13:09 Calcium Level 9.1 mg/dl (8.6-10.3) 05/05/25 08:50 Prothromb Time International Ratio 3.1 (0.9-1.1) H 05/05/25 08 :50 Venous Blood pH 7.25 (7.36-7.41) L 05/04/25 14:35 Venous Blood Partial Pressure CO2 65 mmHg (38-50) H 05/04/25 14 :35 Venous Blood Partial Pressure O2 31 mmHg 05/04/25 14:35 Venous Blood HCO3 29 mmol/L 05/04/25 14:35 Venous Blood Base Excess 0 mEq/L 05/04/25 14:35 Venous Blood Oxygen Saturation < 60.0 % 05/04/25 14:35 Per Test Pass 05/04/25 20:53 Diagnostic Findings (Past 24 Hours) Head CT 05/04/25 13:39 CT head/brain wo con CLINICAL HISTORY: dyspnea, new 02 requirement, tremor. TECHNIQUE: Multiple axial CT images of the head were obtained without contrast. A dose lowering technique was utilized adhering to the principles of ALARA. CT DOSE: 3406.07mGy*cm COMPARISON: None FINDINGS: There is no intra-axial or extra-axial fluid collection, hemorrhage, or mass. There is bifrontal, symmetrical atrophy which is nonspecific. The ventricles are age-appropriate. There is no midline shift. The bone windows are unremarkable. IMPRESSION: No acute intracranial process. Nonspecific bifrontal atrophy. ACT 112: Negative or not required by law. The above report was generated using voice recognition software. It may contain grammatical, syntax or spelling errors. Electronically signed by: Liane Tarango M.D. 05/04/2025 3:00 PM Abdomen/Pelvis CT 05/04/25 14:18 CT SCAN OF THE ABDOMEN AND PELVIS WITHOUT IV CONTRAST CLINICAL HISTORY: Dyspnea. Tremor COMPARISON STUDY: No priors TECHNIQUE: CT scan of the abdomen and pelvis is performed from the lung bases to the proximal femora. Images are reviewed in the axial, sagittal, and coronal planes. IV contrast was not administered for this examination. Note that the examination was performed in suboptimal fashion without IV contrast. The examination is degraded by large body habitus, and by streak artifact from the body wall abutting the CT gantry. There is also motion artifact. A dose lowering technique was utilized adhering to the principles of ALARA. FINDINGS: Lung bases: The heart is top normal in size and without pericardial effusion. The coronary arteries are densely calcified. There is chronic appearing elevation of the right hemidiaphragm with right basilar atelectasis. No airspace consolidation or pleural effusion is identified. Liver: The unenhanced liver is normal in size, contour, and attenuation. There is no intrahepatic biliary ductal dilatation. Gallbladder: Unremarkable. Spleen: Normal in size and attenuation. Pancreas: The unenhanced pancreas is mildly atrophic and grossly unremarkable. Adrenal glands: Unremarkable. Kidneys: The unenhanced kidneys demonstrate cortical atrophy and are without hydronephrosis. There are no renal calculi identified. A 5.8 cm cyst is seen on the left. Abdominal vasculature: The abdominal aorta is normal in course and caliber noting mild atherosclerotic calcification. Bowel: There is no bowel obstruction. Mild fecal retention is seen throughout the colon. The appendix is normal as imaged. Peritoneum: There is no intraperitoneal free air or abdominal ascites. There is a fat-containing umbilical hernia. Lymphadenopathy: None. Pelvic viscera: The prostate gland is diminutive and heterogeneous. The bladder is distended but otherwise normal as imaged Skeletal structures: The skeletal structures are osteopenic. There is advanced lumbosacral spondylosis. Posterior disc osteophyte complexes contribute to multilevel spinal stenosis. Postsurgical change is seen in the lower thoracic spine. No lytic or blastic lesions are seen. Severe arthritic change and chronic deformity is noted in the right hip. Degenerative sclerosis is noted in the sacroiliac joints. IMPRESSION: 1. Suboptimal examination without IV contrast. There is also streak and motion artifact. 2. No acute infectious or inflammatory findings are identified in the abdomen or pelvis. 3. Additional findings as above. ACT 112: Negative or not required by law. Electronically signed by: Yonis Pastor M.D. 05/04/2025 3:[address] 05/04/25 14:18 CT chest diagnostic wo con CT DOSE: 3406.07 mGy.cm CLINICAL HISTORY: dyspnea, new 02 requirement, tremor. TECHNIQUE: Multiaxial CT images of the chest were performed without contrast. A dose lowering technique was utilized adhering to the principles of ALARA. COMPARISON STUDY: None FINDINGS: There is mild elevation of the right hemidiaphragm. There is mild atelectasis or scarring at the right lung base. There is minimal atelectasis or scarring posterior right upper lobe. No other pulmonary consolidation or pleural effusion. No pneumothorax. No evidence of interstitial lung disease. No significant pulmonary nodule. No enlarged adenopathy. No pericardial effusion. There are moderate coronary artery calcifications. There are mild thoracic spine degenerative changes. No acute osseous findings. IMPRESSION: 1. Mild atelectasis or scarring at the right lung. No pneumonia or pleural effusion seen. 2. Otherwise as described. ACT 112: Negative or not required by law. Electronically signed by: Franco Velez M.D. 05/04/2025 3:06 PM I & O Totals 24 Hours 05/04/25 05/05/25 05/06/25 06:59 06:59 06:59 Intake Total 500 / 500 Output Total 925 / 925 Balance -425 / -425 Cumulative 05/04/25 12:38 thru 05/05/25 03:49 Intake Total 500 Output Total 925 Balance -425 RT Ventilator Mngmt (Last Documented) Ventilator Ordered Settings Respiratory Rate 20 05/05/25 07:05 Ventilator - PT Measurements Respiratory Rate 20 PG Care Time/CCT Total # of Minutes Spent Total Time Spent with Patient: Total time spent is greater than 50% in coordination of care (as documented) at patient's floor/unit and/or counseling patient: Coding Level of Care Code 50251 IN/OBS CONSULT LVL 4,60M Diagnoses Dyspnea R06.00 History of pulmonary embolism Z86.711 BMI 50.0-59.9, adult Z68.43
[2025-05-05] MEDS: PATIROMER CALCIUM SORBITEX 8.4 GM PACK PO ONE (11:52)
--- NOTE | 2025-05-05 12:56 | XCELERA ---
[id number] [id number]
--- NOTE | 2025-05-05 14:24 | Electrocardiogram Report ---
Test Reason : Blood Pressure : */* mmHG Vent. Rate : 84 BPM Atrial Rate : 84 BPM P-R Int : 146 ms QRS Dur : 64 ms QT Int : 340 ms P-R-T Axes : 29 64 80 degrees QTcB Int : 401 ms Normal sinus rhythm Normal ECG No previous ECGs available Confirmed by Franco Higgins ([id number]) on 05/05/2025 2:23:50 PM Referred By: REFERRED SELF Confirmed By: Franco Higgins
[2025-05-05] MEDS: WARFARIN SOD 5 MG TAB PO SCH (17:39)
[2025-05-05] MEDS: WARFARIN SOD 2.5 MG TAB PO ONE (17:54)
[2025-05-05 19:35] VITALS: O2SAT 95
[2025-05-05 19:48] LABS: Anion Gap 8.0 (3-11); Blood Urea Nitrogen 37.0 mg/dl (6-23); Calcium 9.8 mg/dl (8.6-10.3); Carbon Dioxide 27.0 mmol/L (21-32); Chloride 101.0 mmol/L (98-107); Creatinine Clr Calc Pharmacy 59.2 ml/min; Glucose 124.0 mg/dl (70-99(Fasting)); Potassium 4.8 mmol/L (3.5-5.1); Sodium 136.0 mmol/L (136-145)
--- NOTE | 2025-05-05 20:11 | Hospitalist Progress Note ---
Date of Service May 05, 2025 Assessment & Plan (1) Hypoxia: (2) Pneumoconiosis: (3) BMI 50.0-59.9, adult: (4) Tremors of nervous system: (5) Muscle spasm: (6) History of pulmonary embolism: (7) NACHO (acute kidney injury): (8) Hypercapnia: (9) Hyperkalemia: Plan 60-year-old male who presented on for acute/chronic SOB with mild hypoxia. #Hypoxia - improved -likely multifactorial - restrictive lung disease from morbid obesity, right sided diaphragmatic elevation, ?black lung disease (although CT chest with minimal findings of such), OHS, etc. -passed 2-step O2 test today, but was borderline low at 89% sats -should f/u with pulmonary as outpatient for PFTs, sleep study, etc. -he is very reluctant to pursue sleep study or any device -lengthy discussion about the hypercapnia - see below -appreciate pulm consult by Dr Mckeon #hypercapnia - -ERNESTO/sleep disordered breathing, hypoventilation from narcotics/sedatives, etc likely all at play -needs sleep study - discussed in detail with patient/pt's #[facility] workers pneumoconiosis ("Black Lung" disease) - -Recent diagnosis in February 2025; started following with [facility] via [facility] system -minimal findings of such on his CT chest this admission #NACHO - -likely 2nd to lasix use x 2 weeks prior to this admission -was volume contracted upon presentation s/p IV fluids -Cr improving from high of 3.3, now 2 -give additional IVF overnight with repeat BMP am -hold celebrex -hold lisinopril -of note - no obstruction on CT a/p #hyperkalemia - -2nd to NACHO -patiromer x 1 -IVF -hold lisinopril; I may advise NOT to resume at d/c #Morbid obesity, BMI >50 #Tremors | spasms - -2nd to hypercapnia? -this is improved today -TSH wnl -k/mag NOT low -check 25-OH vit D; check B12 level #History of PE x 3 on chronic coumadin - -INR 3.1 today -give 1/2 normal dose of coumadin today (2.5mg instead of 5mg) -repeat INR am #HTN - -continue metoprolol succ -hold lisinopril #Chronic pain syndrome - -cont oxycodone 10mg prn watch overnight, hydrate, BMP am extensively updated at bedside today home tomorrow? Admission and Anticipated Discharge Date Admission Date: May 04, 2025 Subjective overnight no new issues pt's o2 sats stable in room air during formal 2-step O2 test today lowest O2 sat was 89% HR did go to 140s at peak walking patient asks about securing new PCP via [employer] system he is worried he won't be able to get his oxycodone for chronic back pain from his new PCP we discussed use of double muscle relaxers (soma, baclofen) discussed that with CKD using celebrex is contraindicated present at bedside patient took most of the afternoon to drink the Patiromer Review of Systems Review of Systems: cv - palpitations at times pulm - no complaints GI - no nausea/emesis Physical Exam Physical Exam: gen - morbidly obese, NAD, sitting at side of bed mouth - MMM today neck - no obvious JVD heart - tones are distant, s1s2, RRR, no murmur lungs - CTA b/l, no rales, no wheeze, very good airation abd - soft NT ND BS+ ext - 1+ edema b/l, pulses b/l feet 2+ psych - tearful at times talking about his health conditions Results & Data Results & Data Vital Signs (Past 12 Hours) Vital Signs Temp Pulse Pulse Pulse Resp Resp Resp 05/05/25 19:32 36.7 C 98 H 16 05/05/25 15:05 140 H 105 H 22 18 05/05/25 15:04 36.9 C 101 H 20 05/05/25 14:28 05/05/25 08:30 BP Pulse Ox Pulse Ox Pulse Ox O2 Del Method 05/05/25 19:32 93/62 L 95 Room Air 05/05/25 15:05 89 L 96 05/05/25 15:04 135/81 95 Room Air 05/05/25 14:28 95 05/05/25 08:30 Room Air Laboratory Results Laboratory Results - last 48 hr 05/04/25 05/04/25 05/04/25 13:09 14:35 20:53 WBC 6.06 RBC 3.81 L Hgb 11.5 L POC Hgb 11.2 L Hct 35.7 L POC Hct 33 L MCV 93.7 MCH 30.2 MCHC 32.2 RDW Std Deviation 50.5 H RDW Coeff of Philip 14.8 H Plt Count 191 MPV 10.9 Immature Gran % (Auto) 0.3 Neut % (Auto) 59.7 Lymph % (Auto) 22.6 [place] % (Auto) 11.6 Eos % (Auto) 5.0 Baso % (Auto) 0.8 Neut # (Auto) 3.62 Lymph # (Auto) 1.37 [place] # (Auto) 0.70 H Eos # (Auto) 0.30 Baso # (Auto) 0.05 Immature Gran # (Auto) 0.02 PT 28.3 H INR 2.9 H APTT 46 H PTT Ratio 1.7 Specimen Type Arterial Sample Site R Radial POC pH 7.31 L POC pCO2 49 H POC pO2 58 L POC HCO3 25 H POC Total CO2 26 POC Base Excess -1.0 ABG pH (Temp Correct) 7.310 L ABG pCO2 (Temp Corrct 49 H POC ABG pO2 at Pt Temp 58 POC ABG O2 Sat 87.0 L Per Test Pass VBG pH 7.25 L VBG pCO2 65 H VBG pO2 31 VBG HCO3 29 VBG O2 Saturation < 60.0 VBG Base Excess 0 O2 Delivery Device Room Air Sodium 135 L Potassium 4.9 Chloride 99 Carbon Dioxide 28 Anion Gap 8 BUN 54 H Creatinine 3.39 H Est Cr Clr Drug Dosing 39.8 eGFR 19.79 BUN/Creatinine Ratio 15.9 Glucose 92 Calcium 9.0 Magnesium 2.1 Total Bilirubin 0.3 AST 14 ALT 11 Alkaline Phosphatase 73 Troponin I High Sens 8.3 B-Natriuretic Peptide 32 Total Protein 7.2 Albumin 3.6 Globulin 3.6 Albumin/Globulin Ratio 1.0 Procalcitonin 0.05 TSH 2.672 05/04/25 05/04/25 05/05/25 21:18 Unknown 08:50 WBC 5.17 RBC 3.78 L Hgb 11.2 L Hct 35.2 L MCV 93.1 MCH 29.6 MCHC 31.8 L RDW Std Deviation 49.9 H RDW Coeff of Philip 14.6 H Plt Count 175 MPV 10.6 PT 30.1 H INR 3.1 H Sodium 136 Potassium 5.4 H Chloride 103 Carbon Dioxide 24 Anion Gap 9 BUN 41 H Creatinine 2.11 H D Est Cr Clr Drug Dosing 56.1 eGFR 34.95 BUN/Creatinine Ratio 19.4 Glucose 122 H Calcium 9.1 Ammonia 27.0 Urine Color Yellow Urine Appearance Clear Urine pH 5.5 Ur Specific [place] 1.011 Urine Protein Negative Urine Glucose (UA) Negative Urine Ketones Negative Urine Blood Negative Urine Nitrite Negative Urine Bilirubin Negative Urine Urobilinogen Negative Ur Leukocyte Esterase Negative Urine Comment SARS-CoV-2 (PCR) NEGATIVE Influenza Type A (PCR) Negative Influenza Type B (PCR) Negative RSV (RT-PCR) Negative 05/05/25 18:52 Sodium 136 Potassium 4.8 Chloride 101 Carbon Dioxide 27 Anion Gap 8 BUN 37 H Creatinine 2.00 H Est Cr Clr Drug Dosing 59.2 eGFR 37.27 BUN/Creatinine Ratio 18.5 Glucose 124 H Calcium 9.8 Diagnostic Findings Echo - limited windows, but LV/RV function grossly normal PG Care Time/CCT Total # of Minutes Spent Total Time Spent with Patient: Total time spent is greater than 50% in coordination of care (as documented) at patient's floor/unit and/or counseling patient: Coding Level of Care Code 66162 SUB INP/OBS CARE 3/50MIN Diagnoses Hypoxia R09.02 Pneumoconiosis J64 BMI 50.0-59.9, adult Z68.43 Tremors of nervous system R25.1 Muscle spasm M62.838 History of pulmonary embolism Z86.711 NACHO (acute kidney injury) N17.9 Hypercapnia R06.89 Hyperkalemia E87.5
[2025-05-05] MEDS: SODIUM CHLORIDE 0.9% 500 ML IV SCH (20:30)
[2025-05-06] MEDS: ONDANSETRON INJ 2 MG/ML 2 ML VIAL IV PRN (07:41)
[2025-05-06 07:56] LABS: Anion Gap 5.0 (3-11); Blood Urea Nitrogen 31.0 mg/dl (6-23); Calcium 9.5 mg/dl (8.6-10.3); Carbon Dioxide 30.0 mmol/L (21-32); Chloride 104.0 mmol/L (98-107); Creatinine Clr Calc Pharmacy 70.9 ml/min; Glucose 95.0 mg/dl (70-99(Fasting)); Potassium 5.2 mmol/L (3.5-5.1); Sodium 139.0 mmol/L (136-145)
[2025-05-06 07:59] VITALS: BP 179/78; PULSE 78; RESP 20; TEMP 98.2
[2025-05-06 08:18] LABS: INR 2.7 (0.9-1.1); Prothrombin Time 26.6 Seconds (9.0-12.0)
[2025-05-06 08:23] LABS: Vitamin B12 160.0 pg/ml (180-914)
[2025-05-06] MEDS: SODIUM ZIRCONIUM CYCLOSILICATE 10 GM PACKET PO SCH (09:16)
[2025-05-06] MEDS: CYANOCOBALAMIN (B-12) 500 MCG TABLET PO SCH (09:16)
[2025-05-06 10:07] LABS: Folate (Folic Acid),Ser orPlas 11.44 ng/ml (>5.38)
--- NOTE | 2025-05-06 12:02 | Discharge Summary ---
Discharge Summary Date of Service May 06, 2025 Principal Dx & Hospital Course #1 = Principal Diagnosis (1) Hypoxia: (2) Pneumoconiosis: (3) BMI 50.0-59.9, adult: (4) Tremors of nervous system: (5) Muscle spasm: (6) History of pulmonary embolism: (7) NACHO (acute kidney injury): (8) Hypercapnia: (9) Hyperkalemia: Plan 60-year-old male who presented on for acute/chronic SOB with mild hypoxia. #Hypoxia - improved -likely multifactorial - restrictive lung disease from morbid obesity, right sided diaphragmatic elevation, ?black lung disease (although CT chest with minimal findings of such), OHS, etc. -passed 2-step O2 test today, but was borderline low at 89% sats -should f/u with pulmonary as outpatient for PFTs, sleep study, etc. -he is very reluctant to pursue sleep study or any device -lengthy discussion about the hypercapnia - see below -appreciate pulm consult by Dr Mckeon #hypercapnia - -ERNESTO/sleep disordered breathing, hypoventilation from narcotics/sedatives, etc likely all at play -needs sleep study - discussed in detail with patient/pt's #[place] [employer] pneumoconiosis ("Black Lung" disease) - -Recent diagnosis in February 2025; started following with [place] [facility] via [facility] system -minimal findings of such on his CT chest this admission #NACHO - -likely 2nd to lasix use x 2 weeks prior to this admission -was volume contracted upon presentation s/p IV fluids -Cr improving from high of 3.3, now 2 -give additional IVF overnight with repeat BMP am -hold celebrex -hold lisinopril -of note - no obstruction on CT a/p #hyperkalemia - -2nd to NACHO -patiromer x 1 -IVF -hold lisinopril; I may advise NOT to resume at d/c #Morbid obesity, BMI >50 #Tremors | spasms - -2nd to hypercapnia? -this is improved today -TSH wnl -k/mag NOT low -check 25-OH vit D; check B12 level #History of PE x 3 on chronic coumadin - -INR 3.1 today -give 1/2 normal dose of coumadin today (2.5mg instead of 5mg) -repeat INR am #HTN - -continue metoprolol succ -hold lisinopril #Chronic pain syndrome - -cont oxycodone 10mg prn watch overnight, hydrate, BMP am extensively updated at bedside today home tomorrow? Admission HPI Per Admitting Provider Mr. Singh is a 60yo male with PMHx of pulmonary embolism x 3 (on warfarin), black lung, HTN, and gout. He presented on 05/04 for SOB. Patient normally follows with [facility]RE[facility] Zavala / [facility]. 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 His shortness of breath has been ongoing since last fall, however he reports an acute worsening today. Both SOB at rest and with exertion. Today, the breathing was acutely worse due to his tremors; he reports several episodes where he could not catch his breath, and he felt like a "fish out of water". He also had difficulty holding objects, and dropped his coffee as well as his TV remote. Patient has been told in the past that he needs up on oxygen, however he has been reluctant to start it. However, he did see a dry dip worker this past February, who did a test on his "arterial blood gas at rest", and he was again told he needed someone oxygen. However this dry dip worker could not prescribe his supplemental oxygen. His recent PCP (Dr. Jb Mayfield at [facility]) retired, and he has been trying to get in with his new PCP (Dr. Fox), but a recent appointment was canceled due to a family emergency. He has been unable to get in for the past 2 to 3 weeks, and feels frustrated by this. Per EMS, patient had a new oxygen requirement as his SpO2 was 88% on room air on arrival. Patient did not tolerate DuoNeb. Patient reports he took his regular morning medicine today. No recent change in medications. He reports good compliance with taking his warfarin, and reports no missed doses daily. He takes warfarin for history of PE x 3, with last episode being in March 2024. He also reports that his INR has been around 2.5 during his last several rechecks. No sick contacts. Records have been requested from his prior PCP. Reports his baseline creatinine is around 2.0, and he does not currently have issues with his kidneys. Patient has been taking Lasix every day over the past week, when normally he does not take it every day. Decreased urinary frequency last night. Patient takes oxycodone 10 mg tablets 3-4 times per day as needed for chronic pain. He takes baclofen 3 times per day for his muscle spasms. Patient reports he is not been tried on propranolol for tremors, or primidone for restless leg syndrome. Patient denies smoking, tobacco use, recent alcohol use. Patient he is hypotensive at 106/57, and SpO2 is 95% on room air on arrival. 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 Patient denies fever, chills, orthopnea, chest pain, chest palpitations, hemoptysis, pleuritic CP, N/V/D, changes in urinary/bowel habits, fecal/urinary incontinence, saddle anesthesia, or numbness/tingling in the arms or legs. Discharge Exam gen - morbidly obese, NAD, sitting at side of bed mouth - MMM today neck - no obvious JVD heart - tones are distant, s1s2, RRR, no murmur lungs - CTA b/l, no rales, no wheeze, very good airation abd - soft NT ND BS+ ext - 1+ edema b/l, pulses b/l feet 2+ psych - tearful at times talking about his health conditions Discharge Plan Discharge Items Patient Disposition: Home - Self-Care Reason For Visit: Shortness of breath, Acute kidney injury Discharge Diagnosis: 1. shortness of breath - likely multiple factors - possible Black Lung Disease, breathing disorders related to abnormal sleep, deconditioning, etc. No evidence of fluid retention in the lungs, no pneumonia, no tumor/mass of the lungs. Echocardiogram (heart function ultrasound) showed relatively normal heart function. 2. acute kidney injury - resolving; admission creatinine was 3.39, discharge creatinine 1.67. 3. hyperkalemia (high potassium) - due to #2 - resolving. 4. vitamin B12 deficiency (level was 160); normal level in an adult male should be 400 or higher. 5. chronic low back pain. 6. previous history of pulmonary emboli; on coumadin; discharge INR 2.7. 7. hypercapnia (high carbon dioxide level) - likely due to the factors listed in #1 above. Activity: Resume your previous activity Non-emergency contact: Primary Care Provider and Specialist Call non-emergency contact if: you have any medication questions and your symptoms worsen Follow-up/Referrals: Andrey Che DO [Primary Care Provider] - Beto Taylor DO [Physician] - 06/07/25 1:40 pm (get established visit.) David Alford DO [Physician] - 05/18/25 11:00 am (hospital follow-up appointment) Diet: Low Potassium (2gm) Ambulatory Orders: Basic Metabolic Panel (Routine) Timeframe: [id number] Location: Determined by Patient Ordered By: Fortunato Potter Attending Provider Instructions: Mr Singh, You were hospitalized due to shortness of breath, tremors, and acute kidney injury. Although you have chronic shortness of breath the breathing was acutely worse. A large work-up was undertaken due to your symptoms including CT scans of the chest, abdomen, and pelvis. An echocardiogram of your heart was also obtained. Dr Orion Mckeon from [facility] saw you in consult for your breathing. It is felt that multiple factors are contributing to your chronic breathing difficulties as listed above. I also believe that the acute kidney injury contributed heavily to the symptoms that had worsened leading up to the hospital stay. When the creatinine becomes high it can cause tremors/twitches. When carbon dioxide is high this, too, can cause the muscles to be a little twitchy. Sometimes people experience more side effects from their chronic medicines when the kidney levels are off. It is certainly possible that medicine side effects caused some of your symptoms as well. Your creatinine level improved nicely with IV fluids and holding some of your medicines (lisinopril, celebrex). Your creatinine at discharge is 1.6. A walking oxygen test showed that you do not need oxygen with activity/walking. You also do not need oxygen when sitting in a chair. We are concerned that a sleep study would show the need for CPAP/BIPAP (and potentially oxygen) when you sleep, however. Mildly high potassium levels were treated with medicines that rid the body of excess potassium through your GI tract. We also found that you have low vitamin B12 levels. Recommendations - 1. Take Lokelma - 1 packet once daily on Friday, 05/07 and Friday, 05/08. This is to keep the potassium level in normal range. (there will be an extra dose from the pharmacy - I will let you know if you need to take more than 2 doses). 2. Have your creatinine and potassium rechecked via blood work THIS COMING May 09. You can have this blood work checked at the [facility] office. You don't have to fast for this blood test. 3. Vitamin B12 deficiency - take [id number] vitamin B12, 1000mcg (1mg) once daily for 6 months. 4. I have prescribed a few tablets of ondansetron which is a medicine for nausea. Take as needed. 5. Keep your previously scheduled visit to have your INR checked next week. Your INR today is 2.7. Resume your normal warfarin schedule upon return home. 6. Please hold the following medicines - * Celebrex * lisinopril * carisoprodol 7. Until otherwise directed please follow a low potassium diet. See handout. 8. Talk to the doctors at the [facility] office about getting a referral to [facility] for the chronic breathing issues. Follow-up - see separate section Return to [facility] if - -you have fevers over 100 degrees -you have worsening shortness of breath (above your typical amounts) -you have chest pains -you have severe dizziness or lightheadedness -any other concerns It was our pleasure to care for you! -Fortunato Das, hospitalist Pending Studies at Discharge: No Stand-Alone Forms: My [employer] [email or web address], Smoking Cessation Medications and DC Order Prescriptions: New Lokelma 10 gram Powder In Packet 10 g PO DAILY Qty: 3 0RF ondansetron 4 mg tablet,disintegrating 4 mg PO Q6H PRN (Reason: nausea and vomiting) Qty: 10 0RF cyanocobalamin (vitamin B-12) 1,000 mcg tablet 1,000 mcg PO DAILY Qty: 90 1RF Rx Instructions: purchase [id number]. Continued furosemide 40 mg tablet 40 mg PO DAILY PRN (Reason: Fluid Retention) metoprolol succinate 50 mg tablet extended release 24 hr 50 mg PO QAM warfarin 2.5 mg tablet 2.5 mg PO .FRIDAY AND FRIDAY fexofenadine [Randa] 180 mg Tablet 180 mg PO DAILY allopurinol 100 mg tablet 100 mg PO BID acetaminophen [Tylenol Ex Str Rapid Release] 500 mg Tablet 1,000 mg PO DAILY PRN (Reason: Pain) baclofen 10 mg tablet 10 mg PO TID warfarin 5 mg tablet 5 mg PO .,,FRI,,SAT Rx Instructions: fri,fri,,fri,,fri gabapentin 300 mg capsule 300 mg PO TID polyethylene glycol 3350 [Miralax] 17 gram/dose Powder 17 g PO DAILY PRN (Reason: Constipation) diclofenac sodium [Voltaren] 1 % Gel 2 g TOPICAL DAILY PRN (Reason: Pain) Rx Instructions: apply to single elbow, wrist or hand; for hand includes palm/fingers/back of hand oxycodone 10 mg tablet 10 mg PO QID cholecalciferol (vitamin D3) [Vitamin D3] 50 mcg (2,000 unit) Capsule 50 mcg PO DAILY Held carisoprodol 350 mg tablet 350 mg PO TID Hold Instructions: if possible would try to hold this medicine celecoxib 200 mg capsule 200 mg PO BID Hold Instructions: hold due to abnormal kidney function lisinopril 10 mg tablet 10 mg PO QAM Hold Instructions: hold due to recently high potassium and high creatinine level Discharge Orders: Discharge Order (Routine); Ordered 05/06/25 Ordered By: Fortunato Chandler/Other Patient Handouts: Low Potassium Diet Dc Admission Data Admit Date/Time: 05/04/25 17:43 Attending Provider: Fortunato Das Admit Provider: Fortunato Das Primary Care Provider: Andrey Che Other Providers: Joe Mckeon; Fortunato Das Hospital Stay Data Consultations 05/04/25 15:35 ED Decision to Admit Stat 05/04/25 20:58 Consult Pulmonology Routine Diagnostic Imagining Performed 05/04/25 13:39 CT head/brain wo con Stat 05/04/25 14:18 CT abd pelvis wo con Stat CT chest diagnostic wo con Stat Pending Results Patient Have Any Pending Studies at Discharge: No Discharge Instructions Given to Patient (Per Discharging Provider) Mr Singh, You were hospitalized due to shortness of breath, tremors, and acute kidney injury. Although you have chronic shortness of breath the breathing was acutely worse. A large work-up was undertaken due to your symptoms including CT scans of the chest, abdomen, and pelvis. An echocardiogram of your heart was also obtained. Dr Orion Mckeon from [facility] saw you in consult for your breathing. It is felt that multiple factors are contributing to your chronic breathing difficulties as listed above. I also believe that the acute kidney injury contributed heavily to the symptoms that had worsened leading up to the hospital stay. When the creatinine becomes high it can cause tremors/twitches. When carbon dioxide is high this, too, can cause the muscles to be a little twitchy. Sometimes people experience more side effects from their chronic medicines when the kidney levels are off. It is certainly possible that medicine side effects caused some of your symptoms as well. Your creatinine level improved nicely with IV fluids and holding some of your medicines (lisinopril, celebrex). Your creatinine at discharge is 1.6. A walking oxygen test showed that you do not need oxygen with activity/walking. You also do not need oxygen when sitting in a chair. We are concerned that a sleep study would show the need for CPAP/BIPAP (and potentially oxygen) when you sleep, however. Mildly high potassium levels were treated with medicines that rid the body of excess potassium through your GI tract. We also found that you have low vitamin B12 levels. Recommendations - 1. Take Lokelma - 1 packet once daily on Friday, 05/07 and 05/08. This is to keep the potassium level in normal range. (there will be an extra dose from the pharmacy - I will let you know if you need to take more than 2 doses). 2. Have your creatinine and potassium rechecked via blood work THIS COMING May 09. You can have this blood work checked at the [facility] office. You don't have to fast for this blood test. 3. Vitamin B12 deficiency - take [id number] vitamin B12, 1000mcg (1mg) once daily for 6 months. 4. I have prescribed a few tablets of ondansetron which is a medicine for nausea. Take as needed. 5. Keep your previously scheduled visit to have your INR checked next week. Your INR today is 2.7. Resume your normal warfarin schedule upon return home. 6. Please hold the following medicines - * Celebrex * lisinopril * carisoprodol 7. Until otherwise directed please follow a low potassium diet. See handout. 8. Talk to the doctors at the [facility] office about getting a referral to [facility] for the chronic breathing issues. Follow-up - see separate section Return to [facility] if - -you have fevers over 100 degrees -you have worsening shortness of breath (above your typical amounts) -you have chest pains -you have severe dizziness or lightheadedness -any other concerns It was our pleasure to care for you! -Fortunato Das, hospitalist Coding Diagnoses Hypoxia R09.02 Pneumoconiosis J64 BMI 50.0-59.9, adult Z68.43 Tremors of nervous system R25.1 Muscle spasm M62.838 History of pulmonary embolism Z86.711 NACHO (acute kidney injury) N17.9 Hypercapnia R06.89 Hyperkalemia E87.5
[2025-05-06] MEDS ORDERED: WARFARIN SOD 2.5 MG TAB PO SCH (16:00)
== END 2025-05-06 15:36 | disposition home or self-care (01) | DRG 197 ==
LOC: ED 12:51 → 3N 17:43